=== PATIENT | male | born 1950 | race Caucasian/White ===

== ENCOUNTER 2017-10-13 12:19 | Inpatient (IN) ==
[2017-10-13] MEDS ORDERED: Albuterol 2.5 MG/3 ML NEBULIZER IH ONE (13:08)
[2017-10-13] MEDS ORDERED: CeFAZolin Syr 2,000MG/20 ML 2,000 MG/20 ML SYRINGE IVPB ONE (13:08)
[2017-10-13] MEDS ORDERED: Lidocaine -MPF 1% 2 ML VIAL ID ONE (13:08)
[2017-10-13] MEDS ORDERED: Albuterol 2.5 MG/3 ML NEBULIZER ONE (13:13)
[2017-10-13] MEDS ORDERED: Ringers Solution, Lactated 1,000 ML IVC SCH ×2 (13:15→21:14)
--- NOTE | 2017-10-13 13:23 | Anesthesia Evaluation PreOp ---
Date of Encounter: 10/13/17 Time of Encounter: 13:21 - Past History Planned Operation: Left Total Hip Arthroplasty Cardiac History: HTN, Hyperlipidemia Pulmonary History: Smoker (40+ years), COPD MULTIPLEX OPERATOR History: Denies Any Significant HX Other Medical History: Renal (kidney stones), Diabetes Type II (diet controlled) , GERD Anesthesia History: No Prior Anesthetic Complications, Past Anesthesia Alcohol Use: none Drug use: none Medications and Allergies Esomeprazole Magnesium [Nexium] 40 mg PO DAILY 10/13/17 [History] Guaifenesin [Mucinex] 600 mg PO Q12H 10/13/17 [History] Meloxicam [Mobic] 15 mg PO DAILY 10/13/17 [History] OxyCODONE/APAP 10/325 [Percocet 10/325 MG] 1 tab PO Q6H PRN 10/13/17 [History] Potassium Chloride 1 tab PO BID 10/13/17 [History] amLODIPine [Norvasc] 5 mg PO DAILY 10/13/17 [History] hydroCHLOROthiazide [Hydrochlorothiazide] 1 tab PO DAILY 10/13/17 [History] 3 Allergy/AdvReac Type Severity Reaction Status Date / Time acetaminophen [From Vicodin] AdvReac Nausea Verified 10/13/17 12:48 duloxetine [From Cymbalta] AdvReac Agitated Verified 10/13/17 12:48 hydrocodone [From Vicodin] AdvReac Nausea Verified 10/13/17 12:48 Varenicline [From Chantix] AdvReac Agitated Verified 10/13/17 12:48 - Meds/Allergy Pre-op Review Medications Reviewed: Yes Allergies Reviewed: Yes Beta Blockers on Current Med List: No Anesthesia Results - Labs Laboratory Tests 10/03/17 10/03/17 10/03/17 12:04 12:04 12:04 WBC 12.7 H Hgb 14.4 Hct 44.6 Plt Count 283 PT 11.1 INR 1.0 APTT 28.4 Sodium 135 L Potassium 4.3 BUN 22 Creatinine 1.21 - Imaging EKG: report reviewed (10/03/2017 SINUS RHYTHM) Anesthesia Exam O2 Sat Height 1.8 m Height 1.8 m Weight 87.09 kg Weight 87.09 kg O2 Sat by Pulse Oximetry 96 Vital Signs Temp Pulse Resp BP Pulse Ox 98.2 F 87 18 123/67 96 10/13/17 12:42 12/22/17 12:42 10/13/17 12:42 10/13/17 12:42 10/13/17 12:42 Height: 5'11'' Weight: 192 lbs NPO (# of Hours): 8 Pain Scale: 8 Pain Scale Used: Numeric (1 - 10) - HEENT Pupil (Motor): EOMI Mallampati: II Teeth: Normal, Missing Denture Type: Upper: Complete Oral Opening: Greater than 3 - MULTIPLEX OPERATOR LOC: Oriented MULTIPLEX OPERATOR Motor: Normal RUE, Normal LUE, Normal RLE, Normal LLE, Normal Face MULTIPLEX OPERATOR Sensory: Normal: RUE, LUE, Face, Deficit: RLE, LLE - Cardiac Rhythm: Regular Murmur: None - Pulmonary Breath Sounds: bilateral Clear Respiratory Effort: Symmetrical Anesthesia Assess/Plan ASA Score: 3 Modified Teresa Scale for Level of Consciousness: Cooperative, oriented, and tranquil Anesthetic Plan: General Monitoring Plan: Standard Monitors Recovery Plan: PACU
--- NOTE | 2017-10-13 13:33 | History & Physical Report ---
Date of Encounter: 10/13/17 Time of Encounter: 13:33 24 Hour HP Update - Instructions Instructions: If the History and Physical is less than 30 days old and was completed prior to A.M. admission and or procedure and has NOT been updated on calendar day of procedure please complete this update prior to performing procedure. - Update Patient reports changes in Medical Condition: No Changes in examination, assessment, or condition: No Changes in Medication: No Preop tests/diagnostics Reviewed: Yes Surgery Remains Indicated: Yes Consent for Planned Operative Procedure(s) Verified: Yes - Pre-Operative Checklist Preoperative Checklist Indicated: No Prophylactic Antibiotic Ordered: Yes Is VTE Prophylaxis Indicated?: Yes
[2017-10-13] MEDS ORDERED: *HR* OxyCODONE Immed Rel 5 MG TABLET PO ONE (13:54)
--- NOTE | 2017-10-13 14:30 | Discharge Summary ---
Date of Encounter: 10/17/17 Time of Encounter: 06:39 - Discharge Diagnosis (1) Hypertension Priority: Secondary Status: Chronic Qualifiers: Hypertension type: unspecified Qualified Code(s): I10 - Essential (primary ) hypertension (2) Hyperlipidemia Priority: Secondary Status: Chronic Qualifiers: Hyperlipidemia type: unspecified Qualified Code(s): E78.5 - Hyperlipidemia , unspecified (3) Tobacco abuse Priority: Secondary Status: Chronic (4) Type 2 diabetes mellitus Priority: Secondary Status: Acute Qualifiers: Diabetes mellitus complication status: without complication Diabetes mellitus fpc insulin use: unspecified fpc insulin use status Qualified Code(s): E11.9 - Type 2 diabetes mellitus without complications (5) Arthritis of left hip Priority: Primary Status: Chronic (6) Status post total hip replacement, left Priority: Primary Status: Acute - Discharge Medications Prescriptions: Aspirin Enteric Coated [Aspirin EC] 325 mg PO BID #20 tablet. Home Medications: Aspirin Enteric Coated [Aspirin EC] 325 mg PO BID #20 tablet. 10/13/17 [Rx] Esomeprazole Magnesium [Nexium] 40 mg PO DAILY 10/13/17 [History] Guaifenesin [Mucinex] 600 mg PO Q12H 10/13/17 [History] Meloxicam [Mobic] 15 mg PO DAILY 10/13/17 [History] OxyCODONE/APAP 10/325 [Percocet 10/325 MG] 1 tab PO Q6H PRN 10/13/17 [History] Potassium Chloride 1 tab PO BID 10/13/17 [History] amLODIPine [Norvasc] 5 mg PO DAILY 10/13/17 [History] hydroCHLOROthiazide [Hydrochlorothiazide] 1 tab PO DAILY 10/13/17 [History] Allergies/Adverse Reactions: 3 Allergy/AdvReac Type Severity Reaction Status Date / Time acetaminophen [From Vicodin] AdvReac Nausea Verified 10/13/17 12:48 duloxetine [From Cymbalta] AdvReac Agitated Verified 10/13/17 12:48 hydrocodone [From Vicodin] AdvReac Nausea Verified 10/13/17 12:48 Varenicline [From Chantix] AdvReac Agitated Verified 10/13/17 12:48 Primary care physician: Brody Ryan CNP - Patient Status Disposition: Transfer Inpatient Rehab Fac Condition: Good Functional capacity at discharge: uses cane/walker Overall status at discharge: patient is progressing back to baseline - Discharge Instructions Follow Up With: Brody Ryan CNP [Primary Care Provider] - - Hospital Course Hospital course: Mr. Sanders is a 67 year old male S/p Left total hip replacement. Patient uneventful postop course, received antibiotics and PT follow up one week Discharge held secondary to placement status - Time Spent with Patient Total time spent providing and/or coordinating discharge services:
[2017-10-13] MEDS ORDERED: *HR* FentaNYL (PF) 100 MCG/2 ML VIAL ONE (14:59)
[2017-10-13] MEDS ORDERED: Ondansetron 4 MG/2 ML VIAL ONE (14:59)
[2017-10-13] MEDS ORDERED: *HR* Midazolam HCl 2 MG/2 ML VIAL ONE (14:59)
[2017-10-13] MEDS ORDERED: *HR* Succinylcholine 200 MG/10 ML VIAL IVP ONE (14:59)
[2017-10-13] MEDS ORDERED: *HR* Propofol 200 MG/20 ML VIAL IVP ONE (14:59)
[2017-10-13] MEDS ORDERED: Lidocaine -MPF 2% 2 ML VIAL ONE (14:59)
[2017-10-13] MEDS ORDERED: *HR* Labetalol 20 MG/4 ML SYRINGE IVP PRN (15:02)
[2017-10-13] MEDS ORDERED: *HR* Promethazine 25 MG/ML VIAL IVP PRN (15:02)
[2017-10-13] MEDS ORDERED: Ethanol\\Acetic Acid\\Na Ace\\Ben 1,000 ML IRRIG.SOLN IR ONE (16:06)
[2017-10-13] MEDS ORDERED: *HR* HYDROmorphone 2 MG/ML SYRINGE ONE (16:56)
[2017-10-13] MEDS ORDERED: Esmolol 100 MG/10 ML VIAL IVP ONE (17:08)
--- NOTE | 2017-10-13 17:37 | Orthopedic Operative Note ---
Date of procedure: 10/13/17 Pre-op diagnosis: Left hip arthritis Post-op diagnosis: same Procedure: Procedure: Left Total Hip Replacment robotic-assisted Estimated blood loss: 300 cc Hardware: Metal and polyethylene replacement. Herman DM Cup: 54 cup Femoral size stem 9 Head: 4head with Ofelia Procedural Notes: Grade 4 arthritic changes femoral head acetabular socket, procedure performed with robotic assistance. Operative procedure: The patient was brought to the operating room and placed on the operating room table. After general anesthesia was administered the patient was placed in the lateral decubitus position with the operative leg up. All pressure points were padded appropriately and the head was stabilized in the neutral position. The operative extremity was prepped and draped in the sterile surgical fashion patient received IV antibiotic prior to skin incision. 3 Steinmann pins were placed in the iliac crest 3 cm proximal to the anterior superior iliac spine this was for the robotic-assisted sensor. This was done through a small 2 cm incision. A standard posterior approach is made to the operative hip, the incision was made through the skin and subcutaneous tissue hemostasis was obtained with Bovie cautery. Using careful sharp dissection the fascia was identified and incised exposing the external rotators. The femoral checkpoint was placed leg length was measured at this time utilizing robotic assistance. The operative leg was 10 mm shorter than the nonoperative leg. The external rotators were released off the greater trochanter and tagged with #2 FiberWire suture. The capsule was T'd open and the hip was brought into internal rotation. Patient noted to have grade 4 arthritic changes femoral head. The femoral neck cut was made at the appropriate level roughly 17 mm proximal to the lesser trochanter aced on preoperative templating. An anterior capsulotomy was performed for the anterior retractor. Soft tissues removed from the acetabulum. Patient noted to have grade 4 arthritic changes acetabulum. The acetabulum checkpoint was placed confirmed. The acetabulum was then mapped with robotic assistance. Based on the preoperative plan the acetabulum was reamed in one step with a 53 reamer. The 54 acetabulum was impacted with robotic assistance and 41 degrees of abduction and 21 degrees of anteversion. The hip was brought back in to internal rotation and prepared with the box stamper followed by the canal finder followed by the reaming process to a size 9/ 10 broaching process in 20 degrees anteversion. It was broached up to the appropriate size 9. Trial reduction revealed leg lengths close to normal. The femoral implant was impacted in place in 20 degrees of anteversion. Trial reduction found the hip to be stable with 4 head and Ofelia. The trials were removed and the real implants were impacted in place. The hip was reduced, patient had robotic confirmed leg length of 5 mm longer than the contralateral side. The hip had excellent stability with forward flexion to 90 degrees adduction of 30 degrees and internal rotation of 60 degrees. The hip had no shuck. The hips after 2 minutes with a Betadine saline solution. It was irrigated out with 2 L of pulse irrigation. The checkpoints were removed, Steinmann pins were removed. The deep tissue was irrigated and closed deep with #1 PDS suture superficially with 0 PDS suture and skin was closed with Dermabond and zip tie. The patient was placed in a sterile dressing and abduction pillow. The patient was extubated and transferred to the recovery room in stable condition. Anesthesia: NICK Surgeon: Nav Santos Condition: stable Disposition: PACU
[2017-10-13] MEDS: *HR* HYDROmorphone (PF) 1 MG/ML SYRINGE IVP PRN ×5 (17:47→23:16)
[2017-10-13] MEDS ORDERED: *HR* Enoxaparin 30 MG/0.3 ML SYRINGE SQ SCH (18:00)
[2017-10-13] MEDS ORDERED: *HR* Morphine 2 MG/ML SYRINGE ONE (18:10)
[2017-10-13] MEDS ORDERED: *HR* Meperidine 25 MG/ML SYRINGE ONE (18:10)
[2017-10-13] MEDS ORDERED: *HR* HYDROmorphone (PF) 1 MG/ML SYRINGE ONE (18:11)
[2017-10-13 18:12] LABS: Hematocrit 41.6 % (37.5-50.1); Hemoglobin 13.5 g/dL (12.9-16.9)
[2017-10-13] MEDS ORDERED: Acetaminophen IV 1,000 MG/100 ML INFUS..BTL ONE (18:56)
[2017-10-13] MEDS ORDERED: Acetaminophen IV 1,000 MG/100 ML INFUS..BTL IVPB ONE (18:59)
--- NOTE | 2017-10-13 19:23 | Anesthesia Evaluation Post Op ---
Date of Encounter: 10/13/17 Time of Encounter: 19:30 - Vital Signs Vital Signs: Vital Signs/O2 Sat/Glucose, Most Current Temp Pulse Resp BP Pulse Ox 10/13/17 19:10 98.0 F 81 16 128/72 99 10/13/17 19:00 80 16 121/72 100 10/13/17 18:50 80 14 115/75 98 10/13/17 18:40 98.0 F 81 16 124/71 98 10/13/17 18:30 80 12 105/69 100 10/13/17 18:20 75 16 122/77 99 10/13/17 18:10 97.6 F 71 20 118/74 100 10/13/17 18:00 74 20 113/75 99 10/13/17 17:50 88 18 95/73 98 10/13/17 17:40 97.6 F 88 10 104/75 97 - Lungs Lungs: Clear Ascult./Percussion - Airway Airway: Non-obstructed - Cardiovascular Regular Rate - Mental Status Mental Status: Alert & Oriented, Answers Appropriately - Pain Pain Scale: 3 - Nausea Vomiting Nausea Vomiting: Not Present - Hydration Hydration: Ice chips - Discharge PostOp Status: Transfer Patient to floor
[2017-10-13] MEDS ORDERED: Ondansetron 4 MG/2 ML VIAL IVP PRN (21:14)
[2017-10-13] MEDS ORDERED: D5% in Water 1,000 ML IVC PRN (21:14)
[2017-10-13] MEDS ORDERED: *HR* OxyCODONE Immed Rel 5 MG TABLET PO PRN (21:14)
[2017-10-13] MEDS ORDERED: Naloxone 0.4 MG/ML INJ IVP PRN (21:14)
[2017-10-13] MEDS ORDERED: Sennosides 8.6 MG TABLET PO PRN (21:14)
[2017-10-13] MEDS ORDERED: *HR* Dextrose 50 % in Water (Syg) 50 ML SYRINGE IVP PRN (21:14)
[2017-10-13] MEDS ORDERED: Dextrose Gel 15 GM PO PRN ×2 (21:14)
[2017-10-13] MEDS ORDERED: Temazepam 15 MG CAPSULE PO PRN (21:14)
[2017-10-13] MEDS ORDERED: MOM Conc 10 ML UD.LIQ PO PRN (21:14)
[2017-10-13] MEDS: CeFAZolin Premix DUPLEX 2,000 MG/50 ML BAG IVPB SCH (23:36)
[2017-10-13] MEDS: Ascorbic Acid 500 MG TABLET PO SCH (23:37)
[2017-10-14] MEDS: Insulin LISPRO 300 UNITS/3 ML VIAL SQ SCH ×6 (00:15→20:45)
[2017-10-14 01:34] LABS: Hematocrit 38.7 % (37.5-50.1); Hemoglobin 12.5 g/dL (12.9-16.9)
[2017-10-14] MEDS: *HR* HYDROmorphone (PF) 1 MG/ML SYRINGE IVP PRN (01:36)
[2017-10-14 01:54] LABS: BUN/Creatinine Ratio 27 (6-26); Blood Urea Nitrogen 26 mg/dL (8-23); Calcium 8.7 mg/dL (8.6-10.3); Carbon Dioxide 24 mEq/L (23-29); Chloride 103 mEq/L (98-107); Glucose 144 mg/dL (70-105); Osmolality,Calculated 287 (280-300); Potassium 4.5 mEq/L (3.5-5.1); Sodium 135 mEq/L (136-145); eGFR For African Americans > 60 (> 60); eGFR For Non-African Americans > 60 (> 60)
[2017-10-14] MEDS: *HR* Enoxaparin 30 MG/0.3 ML SYRINGE SQ SCH ×2 (06:05→17:16)
--- NOTE | 2017-10-14 06:47 | Orthopedics Progress Note ---
Date of Encounter: 10/14/17 Time of Encounter: 06:46 - Assessment and Plan (1) Hypertension Current Visit: Yes Status: Chronic Qualifiers: Hypertension type: unspecified Qualified Code(s): I10 - Essential (primary ) hypertension (2) Hyperlipidemia Current Visit: Yes Status: Chronic Qualifiers: Hyperlipidemia type: unspecified Qualified Code(s): E78.5 - Hyperlipidemia , unspecified (3) Tobacco abuse Current Visit: Yes Status: Chronic (4) Type 2 diabetes mellitus Current Visit: Yes Status: Acute Qualifiers: Diabetes mellitus complication status: without complication Diabetes mellitus nursing home insulin use: unspecified technician terminal and repeater insulin use status Qualified Code(s): E11.9 - Type 2 diabetes mellitus without complications (5) Arthritis of left hip Current Visit: Yes Status: Chronic (6) Status post total hip replacement, left Current Visit: Yes Status: Acute Subjective Interval history: Patient was seen this morning doing well without complaints. Afebrile vital signs stable. Operative extremity: Neurovascularly intact Dressing clean dry and intact Calves nontender Assessment and plan: Continue with postoperative care Hematocrit 38 Objective Vital signs: Vital Signs Temp Pulse Resp BP Pulse Ox 10/14/17 05:26 97.8 F 97 18 112/73 98 10/13/17 23:00 98.5 F 78 16 109/75 95 10/13/17 22:00 98.5 F 75 16 118/72 95 10/13/17 21:00 98.2 F 82 16 114/71 94 10/13/17 20:30 98.0 F 84 14 118/70 95 10/13/17 20:00 97.9 F 88 16 124/20 95 10/13/17 19:20 80 16 127/78 98 10/13/17 19:10 98.0 F 81 16 128/72 99 10/13/17 19:00 80 16 121/72 100 10/13/17 18:50 80 14 115/75 98 10/13/17 18:40 98.0 F 81 16 124/71 98 10/13/17 18:30 80 12 105/69 100 10/13/17 18:20 75 16 122/77 99 10/13/17 18:10 97.6 F 71 20 118/74 100 10/13/17 18:00 74 20 113/75 99 10/13/17 17:50 88 18 95/73 98 10/13/17 17:40 97.6 F 88 10 104/75 97 10/13/17 13:26 18 123/67 96 10/13/17 12:42 98.2 F 87 18 123/67 96 Intake and Output 10/13/17 10/13/17 10/14/17 15:59 23:59 07:59 Intake Total 100 / 100 Output Total 300 / 300 400 / 400 Balance -200 / -200 -400 / -400 Intake: IV Fluids 100 / 100 Ofirmev 1,000 mg/100 ml 1,000 100 / 100 mg In 100 ml @ 400 mls/hr IVPB ONCE ONE Rx#:[id number] Output: Urine 400 / 400 Estimated Blood Loss 300 / 300 Other: Weight 87.09 kg Blood Glucose* 135 - Labs CBC & BMP: 10/14/17 01:04 10/14/17 01:04 Labs: Abnormal lab results Hgb 12.5 g/dL (12.9-16.9) L 10/14/17 01:04 Sodium 135 mEq/L (136-145) L 10/14/17 01:04 BUN 26 mg/dL (8-23) H 10/14/17 01:04 BUN/Creatinine Ratio 27 (6-26) H 10/14/17 01:04 Glucose 144 mg/dL (70-105) H 10/14/17 01:04 POC Glucose 135 (58-89) H 10/14/17 00:12 - VTE Documentation of Mechanical Device: Venous foot pump, device Consult Discharge Plan - Plan Referrals: Brody Ryan CNP [Primary Care Provider] - Prescriptions: Aspirin Enteric Coated [Aspirin EC] 325 mg PO BID #20 tablet.
[2017-10-14] MEDS: CeFAZolin Premix DUPLEX 2,000 MG/50 ML BAG IVPB SCH (08:00)
[2017-10-14] MEDS: Ascorbic Acid 500 MG TABLET PO SCH ×2 (08:00→17:12)
[2017-10-14] MEDS: amLODIPine 5 MG TABLET PO SCH (08:01)
[2017-10-14] MEDS: hydroCHLOROthiazide 25 MG TABLET PO SCH (08:01)
[2017-10-14] MEDS: Ketorolac 30 MG/ML VIAL IVP PRN ×2 (08:22→17:11)
[2017-10-14 08:30] LABS: Hemoglobin 12.6 g/dL (12.9-16.9)
[2017-10-14] MEDS: Multivit/Ca/Min/Fe/FA 1 TAB TABLET PO SCH (17:15)
[2017-10-15] MEDS: Ketorolac 30 MG/ML VIAL IVP PRN (01:20)
[2017-10-15 01:24] LABS: Hematocrit 30.1 % (37.5-50.1)
[2017-10-15 01:42] LABS: BUN/Creatinine Ratio 34 (6-26); Blood Urea Nitrogen 41 mg/dL (8-23); Calcium 8.5 mg/dL (8.6-10.3); Carbon Dioxide 29 mEq/L (23-29); Chloride 103 mEq/L (98-107); Glucose 147 mg/dL (70-105); Osmolality,Calculated 295 (280-300); Potassium 4.5 mEq/L (3.5-5.1); Sodium 136 mEq/L (136-145); eGFR For African Americans > 60 (> 60); eGFR For Non-African Americans > 60 (> 60)
[2017-10-15 02:17] LABS: Hemoglobin 9.8 g/dL (12.9-16.9)
[2017-10-15] MEDS: Insulin LISPRO 300 UNITS/3 ML VIAL SQ SCH ×4 (09:57→21:24)
[2017-10-15] MEDS: Multivit/Ca/Min/Fe/FA 1 TAB TABLET PO SCH (09:58)
[2017-10-15] MEDS: amLODIPine 5 MG TABLET PO SCH (09:59)
[2017-10-15] MEDS: Ascorbic Acid 500 MG TABLET PO SCH ×2 (09:59→15:38)
[2017-10-15] MEDS: hydroCHLOROthiazide 25 MG TABLET PO SCH (09:59)
--- NOTE | 2017-10-15 11:12 | Orthopedics Progress Note ---
Date of Encounter: 10/15/17 Time of Encounter: 11:11 - Assessment and Plan (1) Hypertension Current Visit: Yes Status: Chronic Qualifiers: Hypertension type: unspecified Qualified Code(s): I10 - Essential (primary ) hypertension (2) Hyperlipidemia Current Visit: Yes Status: Chronic Qualifiers: Hyperlipidemia type: unspecified Qualified Code(s): E78.5 - Hyperlipidemia , unspecified (3) Tobacco abuse Current Visit: Yes Status: Chronic (4) Type 2 diabetes mellitus Current Visit: Yes Status: Acute Qualifiers: Diabetes mellitus complication status: without complication Diabetes mellitus long-term insulin use: unspecified intermission coordinator insulin use status Qualified Code(s): E11.9 - Type 2 diabetes mellitus without complications (5) Arthritis of left hip Current Visit: Yes Status: Chronic (6) Status post total hip replacement, left Current Visit: Yes Status: Acute Subjective Interval history: Patient was seen this morning doing well without complaints. Afebrile vital signs stable. Operative extremity: Neurovascularly intact Dressing clean dry and intact Calves nontender Assessment and plan: Continue with postoperative care Hb 9.8 stable for DC Objective Vital signs: Vital Signs Temp Pulse Resp BP Pulse Ox 10/14/17 23:59 98.1 F 81 16 103/55 97 10/14/17 20:44 98.7 F 103 18 105/59 97 10/14/17 16:16 98.0 F 86 14 117/64 98 10/14/17 11:58 97.5 F L 89 16 113/67 96 Intake and Output 10/14/17 10/15/17 10/15/17 23:59 07:59 15:59 Intake Total 300 / 300 50 / 50 Output Total 400 / 400 300 / 300 Balance -100 / -100 -250 / -250 Intake: Oral 300 / 300 50 / 50 Output: Urine 400 / 400 300 / 300 Other: Weight 87.4 kg Blood Glucose* 152 - Labs CBC & BMP: 10/15/17 01:07 10/15/17 01:07 Labs: Abnormal lab results Hgb 9.8 g/dL (12.9-16.9) L D 10/15/17 01:07 Hct 30.1 % (37.5-50.1) L 10/15/17 01:07 BUN 41 mg/dL (8-23) H 10/15/17 01:07 BUN/Creatinine Ratio 34 (6-26) H 10/15/17 01:07 Glucose 147 mg/dL (70-105) H 10/15/17 01:07 POC Glucose 117 (58-89) H 10/15/17 07:57 Calcium 8.5 mg/dL (8.6-10.3) L 10/15/17 01:07 - VTE Documentation of Mechanical Device: Venous foot pump, device Consult Discharge Plan - Plan Referrals: Brody Ryan CNP [Primary Care Provider] - Prescriptions: Aspirin Enteric Coated [Aspirin EC] 325 mg PO BID #20 tablet.
[2017-10-15] MEDS: *HR* Enoxaparin 30 MG/0.3 ML SYRINGE SQ SCH ×2 (15:14→17:27)
[2017-10-15] MEDS: *HR* OxyCODONE Immed Rel 5 MG TABLET PO PRN (15:39)
--- NOTE | 2017-10-16 01:29 | Orthopedics Progress Note ---
Date of Encounter: 10/16/17 Time of Encounter: 01:29 - Assessment and Plan (1) Hypertension Current Visit: Yes Status: Chronic Qualifiers: Hypertension type: unspecified Qualified Code(s): I10 - Essential (primary ) hypertension (2) Hyperlipidemia Current Visit: Yes Status: Chronic Qualifiers: Hyperlipidemia type: unspecified Qualified Code(s): E78.5 - Hyperlipidemia , unspecified (3) Tobacco abuse Current Visit: Yes Status: Chronic (4) Type 2 diabetes mellitus Current Visit: Yes Status: Acute Qualifiers: Diabetes mellitus complication status: without complication Diabetes mellitus long-term insulin use: unspecified termination clerk insulin use status Qualified Code(s): E11.9 - Type 2 diabetes mellitus without complications (5) Arthritis of left hip Current Visit: Yes Status: Chronic (6) Status post total hip replacement, left Current Visit: Yes Status: Acute Subjective Interval history: Patient was seen this morning doing well without complaints. Afebrile vital signs stable. Operative extremity: Neurovascularly intact Dressing clean dry and intact Calves nontender Assessment and plan: Continue with postoperative care Discharge held secondary to placement Objective Vital signs: Vital Signs Temp Pulse Resp BP Pulse Ox 10/16/17 00:26 99.1 F 82 16 108/48 93 10/15/17 19:22 99.0 F 81 15 96/53 92 10/15/17 15:23 98.4 F 88 18 92/52 92 10/15/17 11:44 99.0 F 92 16 102/57 94 Intake and Output 10/15/17 10/15/17 10/16/17 15:59 23:59 07:59 Intake Total 360 / 360 440 / 440 0 / 0 Output Total 525 / 525 250 / 250 300 / 300 Balance -165 / -165 190 / 190 -300 / -300 Intake: Oral 360 / 360 440 / 440 0 / 0 Output: Urine 525 / 525 250 / 250 300 / 300 Other: Meal Lunch Dinner Percent of Meal Consumed 90% 90% Blood Glucose* 124 139 - Labs CBC & BMP: 10/15/17 01:07 10/15/17 01:07 Labs: Abnormal lab results Hgb 9.8 g/dL (12.9-16.9) L D 10/15/17 01:07 Hct 30.1 % (37.5-50.1) L 10/15/17 01:07 BUN 41 mg/dL (8-23) H 10/15/17 01:07 BUN/Creatinine Ratio 34 (6-26) H 10/15/17 01:07 Glucose 147 mg/dL (70-105) H 10/15/17 01:07 POC Glucose 139 (58-89) H 10/15/17 20:12 Calcium 8.5 mg/dL (8.6-10.3) L 10/15/17 01:07 - VTE Documentation of Mechanical Device: Intermittent pneumatic compression device Consult Discharge Plan - Plan Referrals: Brody Ryan CNP [Primary Care Provider] - Prescriptions: Aspirin Enteric Coated [Aspirin EC] 325 mg PO BID #20 tablet.
[2017-10-16] MEDS: *HR* Enoxaparin 30 MG/0.3 ML SYRINGE SQ SCH ×2 (05:15→16:34)
[2017-10-16] MEDS: *HR* OxyCODONE Immed Rel 5 MG TABLET PO PRN ×4 (05:20→20:37)
[2017-10-16] MEDS: Insulin LISPRO 300 UNITS/3 ML VIAL SQ SCH ×4 (07:29→20:34)
[2017-10-16] MEDS: Multivit/Ca/Min/Fe/FA 1 TAB TABLET PO SCH (07:57)
[2017-10-16] MEDS: amLODIPine 5 MG TABLET PO SCH (07:57)
[2017-10-16] MEDS: Ascorbic Acid 500 MG TABLET PO SCH ×2 (07:57→16:34)
[2017-10-16] MEDS: hydroCHLOROthiazide 25 MG TABLET PO SCH (07:57)
[2017-10-17] MEDS: *HR* OxyCODONE Immed Rel 5 MG TABLET PO PRN ×3 (01:17→19:54)
[2017-10-17] MEDS: *HR* Enoxaparin 30 MG/0.3 ML SYRINGE SQ SCH ×2 (06:32→18:53)
--- NOTE | 2017-10-17 06:40 | Orthopedics Progress Note ---
Date of Encounter: 10/17/17 Time of Encounter: 06:40 - Assessment and Plan (1) Hypertension Status: Chronic Qualifiers: Hypertension type: unspecified Qualified Code(s): I10 - Essential (primary ) hypertension (2) Hyperlipidemia Status: Chronic Qualifiers: Hyperlipidemia type: unspecified Qualified Code(s): E78.5 - Hyperlipidemia , unspecified (3) Tobacco abuse Status: Chronic (4) Type 2 diabetes mellitus Status: Acute Qualifiers: Diabetes mellitus complication status: without complication Diabetes mellitus moth exterminator insulin use: unspecified moth exterminator insulin use status Qualified Code(s): E11.9 - Type 2 diabetes mellitus without complications (5) Arthritis of left hip Status: Chronic (6) Status post total hip replacement, left Status: Acute Subjective Interval history: Patient was seen this morning doing well without complaints. Afebrile vital signs stable. Operative extremity: Neurovascularly intact Dressing clean dry and intact Calves nontender Assessment and plan: Continue with postoperative care Discharge held secondary to placement discharged today Objective Vital signs: Vital Signs Temp Pulse Resp BP Pulse Ox 10/17/17 06:23 98.6 F 79 18 95/50 93 10/16/17 23:48 98.1 F 90 18 91/54 93 10/16/17 19:42 98.2 F 78 16 95/53 92 10/16/17 11:01 98.5 F 92 18 111/56 96 Intake and Output 10/16/17 10/16/17 10/17/17 15:59 23:59 07:59 Intake Total 450 / 450 250 / 250 Output Total 925 / 925 400 / 400 450 / 450 Balance -475 / -475 -150 / -150 -450 / -450 Intake: Oral 450 / 450 250 / 250 Output: Urine 925 / 925 400 / 400 450 / 450 Other: Meal Breakfast Percent of Meal Consumed 60% Blood Glucose* 119 179 - Labs CBC & BMP: 10/15/17 01:07 10/15/17 01:07 Labs: Abnormal lab results Hgb 9.8 g/dL (12.9-16.9) L D 10/15/17 01:07 Hct 30.1 % (37.5-50.1) L 10/15/17 01:07 BUN 41 mg/dL (8-23) H 10/15/17 01:07 BUN/Creatinine Ratio 34 (6-26) H 10/15/17 01:07 Glucose 147 mg/dL (70-105) H 10/15/17 01:07 POC Glucose 179 (58-89) H 10/16/17 20:33 Calcium 8.5 mg/dL (8.6-10.3) L 10/15/17 01:07 - VTE Documentation of Mechanical Device: Intermittent pneumatic compression device Consult Discharge Plan - Plan Referrals: Brody Ryan CNP [Primary Care Provider] - Prescriptions: Aspirin Enteric Coated [Aspirin EC] 325 mg PO BID #20 tablet.
[2017-10-17] MEDS: Insulin LISPRO 300 UNITS/3 ML VIAL SQ SCH ×4 (08:19→20:38)
[2017-10-17] MEDS: Multivit/Ca/Min/Fe/FA 1 TAB TABLET PO SCH (08:21)
[2017-10-17] MEDS: Ascorbic Acid 500 MG TABLET PO SCH ×2 (08:21→18:53)
[2017-10-17] MEDS: hydroCHLOROthiazide 25 MG TABLET PO SCH (08:22)
[2017-10-17] MEDS: amLODIPine 5 MG TABLET PO SCH (08:22)
[2017-10-17 15:04] LABS: Basophils # 0.1 K/mcL (0.0-0.2); Basophils % 0.6 %; Eosinophils # 0.4 K/mcL (0.0-0.6); Eosinophils % 3.3 %; Hematocrit 25.2 % (37.5-50.1); Immature Granulocytes % 0.4 % (0-4); Lymphocytes # 2.7 K/mcL (0.6-4.6); Lymphocytes % 24.9 %; Mean Corpuscular HGB Conc 32.5 g/dL (31.6-35.5); Mean Corpuscular Hemoglobin 30.6 pg (28.0-33.3); Mean Platelet Volume 9.1 fL (9.4-12.4); Monocytes # 1.3 K/mcL (0.0-1.3); Monocytes % 11.7 %; Neutrophils # 6.5 K/mcL (1.6-8.9); Platelet Count 216 K/mcL (140-400); Red Blood Count 2.68 M/mcL (4.19-5.50); Red Cell Distribution Width 13.2 % (11.5-14.5); Segmented Neutrophils % 59.1 %
[2017-10-17 15:09] LABS: Hemoglobin 8.2 g/dL (12.9-16.9)
--- NOTE | 2017-10-17 20:21 | Physician Discharge Referral ---
ExtendedCare Referral Info Transfer To: [facility] Provider in Charge: Dr. Nav Santos - Diagnosis (1) Hypertension Priority: Secondary Status: Chronic (2) Hyperlipidemia Priority: Secondary Status: Chronic (3) Tobacco abuse Priority: Secondary Status: Chronic (4) Type 2 diabetes mellitus Priority: Secondary Status: Acute (5) Arthritis of left hip Priority: Primary Status: Chronic (6) Status post total hip replacement, left Priority: Primary Status: Acute Expected Duration of Placement: less than 30 days Prognosis: Good Aware of Diagnosis: Patient Aware of Prognosis: Patient - Transfer Medications Prescriptions: Aspirin Enteric Coated [Aspirin EC] 325 mg PO BID #20 tablet. [place] Medications: Aspirin Enteric Coated [Aspirin EC] 325 mg PO BID #20 tablet. 10/13/17 [Rx] Esomeprazole Magnesium [Nexium] 40 mg PO DAILY 10/13/17 [History] Guaifenesin [Mucinex] 600 mg PO Q12H 10/13/17 [History] Meloxicam [Mobic] 15 mg PO DAILY 10/13/17 [History] OxyCODONE/APAP 10/325 [Percocet 10/325 MG] 1 tab PO Q6H PRN 10/13/17 [History] Potassium Chloride 1 tab PO BID 10/13/17 [History] amLODIPine [Norvasc] 5 mg PO DAILY 10/13/17 [History] hydroCHLOROthiazide [Hydrochlorothiazide] 1 tab PO DAILY 10/13/17 [History] Allergies/Adverse Reactions: 3 Allergy/AdvReac Type Severity Reaction Status Date / Time acetaminophen [From Vicodin] AdvReac Nausea Verified 10/13/17 12:48 duloxetine [From Cymbalta] AdvReac Agitated Verified 10/13/17 12:48 hydrocodone [From Vicodin] AdvReac Nausea Verified 10/13/17 12:48 Varenicline [From Chantix] AdvReac Agitated Verified 10/13/17 12:48 - Respiratory Orders Smoking Cessation: Smoking cessation has been advised. For more information, call the [place] Tobacco Quit Line at 1-953-VIIQ-NOW. - Ancillary Orders May use pressure relief devices daily prn, May go on VAN w/family/respon constitution party w /meds at nurse discretion PRN, May consult with Dentist, Blocker And Sewer, Dairy Management Specialist PRN - Mobility Orders Chair, Ambulate - Rehabiliation Orders Rehab Potential: Good Rehab Orders: Evaluation for Physical Therapy, Evaluation for Occupational Therapy Other: Total Hip replacement Precautions Apply cold therapy 3-6x/day for 20 minutes at a time. Encourage ambulation throughout the day and incentive spirometer 10x/hour. Elevate affected extremity as tolerated. Brace: Wear hip abduction pillow when laying/sleeping - Treatments Skin tear care topically daily PRN per policy List/Other: Opsite placed. Keep dressing intact until first follow up appointment. If > 50% saturated, notify office, remove dressing and place appropriate dressing back in place. Leave Zipline intact. Opsite dressing is water resistant, not water- proof. OK to shower, but do not get dressing wet. - Diet Orders Regular CERTIFICATION: I certify that the transfer of the above named patient to an Extended Care Facility is necessary for the continuing treatment of the diagnosis listed. The above information is true and accurate reflection of patient's current condition. Confidential - Redisclosure prohibited without a patient's written consent.
[2017-10-18] MEDS: *HR* OxyCODONE Immed Rel 5 MG TABLET PO PRN (04:56)
[2017-10-18] MEDS: *HR* Enoxaparin 30 MG/0.3 ML SYRINGE SQ SCH (04:57)
--- NOTE | 2017-10-18 06:39 | Orthopedics Progress Note ---
Date of Encounter: 10/18/17 Time of Encounter: 06:39 - Assessment and Plan (1) Hypertension Current Visit: No Status: Chronic Qualifiers: Hypertension type: unspecified Qualified Code(s): I10 - Essential (primary ) hypertension (2) Hyperlipidemia Current Visit: No Status: Chronic Qualifiers: Hyperlipidemia type: unspecified Qualified Code(s): E78.5 - Hyperlipidemia , unspecified (3) Tobacco abuse Current Visit: No Status: Chronic (4) Type 2 diabetes mellitus Current Visit: No Status: Acute Qualifiers: Diabetes mellitus complication status: without complication Diabetes mellitus [facility] insulin use: unspecified watermaster insulin use status Qualified Code(s): E11.9 - Type 2 diabetes mellitus without complications (5) Arthritis of left hip Current Visit: No Status: Chronic (6) Status post total hip replacement, left Current Visit: No Status: Acute Subjective Interval history: Patient was seen this morning doing well without complaints. Afebrile vital signs stable. Operative extremity: Neurovascularly intact Dressing clean dry and intact [place] nontender Assessment and plan: Continue with postoperative care Discharge held secondary to placement discharged today hemoglobin 8.2 asymptomatic Objective Vital signs: Vital Signs Temp Pulse Resp BP Pulse Ox 10/18/17 03:27 98.3 F 73 18 115/63 95 10/17/17 23:05 97.5 F L 82 17 104/59 95 10/17/17 18:59 99.0 F 75 17 108/63 93 10/17/17 14:20 98.2 F 80 18 96/56 93 10/17/17 10:55 98.2 F 76 18 94/51 94 Intake and Output 10/17/17 10/17/17 10/18/17 15:59 23:59 07:59 Intake Total 480 / 480 410 / 410 600 / 600 Output Total 200 / 200 425 / 425 450 / 450 Balance 280 / 280 -15 / -15 150 / 150 Intake: Oral 480 / 480 410 / 410 600 / 600 Output: Urine 200 / 200 425 / 425 450 / 450 Other: Meal Lunch Dinner Percent of Meal Consumed 90% 100% # Voids 1 Blood Glucose* 125 154 - Labs CBC & BMP: 10/17/17 14:42 10/15/17 01:07 Labs: Abnormal lab results RBC 2.68 M/mcL (4.19-5.50) L 10/17/17 14:42 Hgb 8.2 g/dL (12.9-16.9) L D 10/17/17 14:42 Hct 25.2 % (37.5-50.1) L 10/17/17 14:42 MPV 9.1 fL (9.4-12.4) L 10/17/17 14:42 BUN 41 mg/dL (8-23) H 10/15/17 01:07 BUN/Creatinine Ratio 34 (6-26) H 10/15/17 01:07 Glucose 147 mg/dL (70-105) H 10/15/17 01:07 POC Glucose 154 (58-89) H 10/17/17 20:36 Calcium 8.5 mg/dL (8.6-10.3) L 10/15/17 01:07 - VTE Documentation of Mechanical Device: Intermittent pneumatic compression device Consult Discharge Plan - Plan Referrals: Brody Ryan CNP [Primary Care Provider] - Prescriptions: Aspirin Enteric Coated [Aspirin EC] 325 mg PO BID #20 tablet.
[2017-10-18] MEDS: hydroCHLOROthiazide 25 MG TABLET PO SCH (07:25)
[2017-10-18] MEDS: amLODIPine 5 MG TABLET PO SCH (07:25)
[2017-10-18] MEDS: Ascorbic Acid 500 MG TABLET PO SCH (07:25)
[2017-10-18] MEDS: Multivit/Ca/Min/Fe/FA 1 TAB TABLET PO SCH (07:26)
[2017-10-18] MEDS: Insulin LISPRO 300 UNITS/3 ML VIAL SQ SCH ×2 (07:26→11:50)
[2017-10-18 10:38] VITALS: BP 104/51
== END 2017-10-18 15:05 | disposition other institution (70) | DRG 470 ==
LOC: SAMDAY 12:19 → 3NENU 12:30
PROVIDERS: ADMIT Orthopaedic Surgery; ATTEND Orthopaedic Surgery